=== PATIENT | female | born 1955 | race Two or more races ===

== ENCOUNTER 2023-11-09 09:58 | Emergency (ER) | payer OTHER ==
[~2023-11-09] VITALS: Ht 160 cm; Wt 90.7 kg
[2023-11-09] MEDS ORDERED: MURINE EAR DROP15 ML OT (11:56)
[2023-11-09] MEDS ORDERED: AMOX250 PO (11:56)
== END 2023-11-09 12:13 | disposition home or self-care (01) ==
LOC: ER 09:59
DX: H92.03 Otalgia, bilateral (principal); H92.01 Otalgia, right ear; H61.21 Impacted cerumen, right ear; I10 Essential (primary) hypertension; E11.9 Type 2 diabetes mellitus without complications